=== PATIENT | male | born 1985 | race Two or more races ===

== ENCOUNTER 2021-01-20 09:03 | Emergency (ER) | payer OTHER ==
[~2021-01-20] VITALS: Ht 172.7 cm; Wt 83.5 kg
[2021-01-20] MEDS ORDERED: ORPHENADRINE C100 MG PO (12:37)
[2021-01-20] MEDS ORDERED: KETO10TA2 PO (12:37)
== END 2021-01-20 12:42 | disposition home or self-care (01) ==
LOC: ER 09:03
DX: S33.5XXA Sprain of ligaments of lumbar spine, initial encounter (principal); X50.0XXA Overexertion from strenuous movement or load, initial encounter; Y93.89 Activity, other specified; Y92.89 Other specified places as the place of occurrence of the external cause; Y99.8 Other external cause status

== ENCOUNTER 2021-07-08 08:00 | Outpatient (CLI) | payer OTHER ==
[~2021-07-08 08:00] MED LIST: KETO10TA2 PO; ORPHENADRINE C100 MG PO
== END 2021-07-08 08:30 | disposition home or self-care (01) ==
LOC: PPH VACUNA 08:00
DX: Z23 Encounter for immunization (principal)

== ENCOUNTER 2021-07-29 08:00 | Outpatient (CLI) | payer OTHER | END 2021-07-29 08:30 | disposition home or self-care (01) | LOC: PPH VACUNA 08:00 | DX: Z23 Encounter for immunization (principal) ==

== ENCOUNTER 2021-12-10 09:00 | Outpatient (CLI) | payer OTHER | END 2021-12-10 09:15 | disposition home or self-care (01) | LOC: PPH VACUNA 09:00 | PROVIDERS: ATTEND Emergency Medicine Pediatric Emergency Medicine | DX: Z23 Encounter for immunization (principal) ==

== ENCOUNTER 2022-01-04 08:00 | Outpatient (CLI) | payer OTHER | END 2022-01-04 08:30 | disposition home or self-care (01) | LOC: PPH VACUNA 08:00 | PROVIDERS: ATTEND Emergency Medicine Pediatric Emergency Medicine | DX: Z23 Encounter for immunization (principal) ==